=== PATIENT | female | born 1940 | race Hispanic/Latino ===

== ENCOUNTER 2017-04-17 03:01 | Inpatient (IN) | payer OTHER ==
[~2017-04-17 03:01] MED LIST: AMIO200T2 PO; AMOX1TAB16 PO; APIX5TAB PO; CARV6.25 PO; DIGO125T87 PO; FURO20TA6 PO; LEVO50TA11 PO; TYL3 PO; VALS320T15 PO
[2017-04-17] MEDS ORDERED: SODIUM CHLORIDE 0.9% 1000ML 1,000 ML IV ONE (03:23)
[2017-04-17] MEDS ORDERED: ONDANSETRON HCL 4 MG/2 ML VIAL ONE (03:23)
[2017-04-17] MEDS ORDERED: ACETAMINOPHEN EXTRA STRENGTH 500 MG TABLET ONE (03:23)
[2017-04-17 03:42] LABS: BASOPHILS % (AUTO) 0.4 % (0.0-5.0); HEMATOCRIT 43.9 % (36-48); LYMPHOCYTES % (AUTO) 14.6 % (21.0-51.0); MEAN CORPUSCULAR HEMOGLOBIN 32.2 pg (27.0-33.0); MEAN CORPUSCULAR HGB CONC 33.6 g/dL (32.0-36.0); MEAN CORPUSCULAR VOLUME 95.7 fL (79-99); MONOCYTES % (AUTO) 3.8 % (3.0-13.0); NEUTROPHILS % (AUTO) 81.2 % (40.0-77.0); NUCLEATED RED BLOOD CELLS 0.7 % (0.0-0.19); PLATELET COUNT (AUTO) 220 K/uL (130-400); RED BLOOD CELL COUNT(AUTO) 4.59 MIL/uL (4.00-5.50); RED CELL DISTRIBUTION WIDTH 13.9 % (11.0-15.5); WHITE BLOOD COUNT (AUTO) 6.6 K/uL (4.8-10.8)
[2017-04-17 03:43] LABS: CREATININE 2.5 mg/dL (0.5-1.5); POTASSIUM 3.6 mmol/L (3.5-5.1)
[2017-04-17 03:46] LABS: INR 1.15 (0.85-1.15); PARTIAL THROMBOPLASTIN TIME 29.8 SEC (26.3-35.5)
[2017-04-17 03:48] LABS: ABG BASE EXCESS -6.9 mmol/L (-2.0-3.0); ABG HCO3 15.3 mmol/L (21.0-28.0); ABG OXYGEN SATURATION 90.9 % (95.0-99.0); ABG PCO2 24 mmHg (32-45)
[2017-04-17] MEDS ORDERED: ZOSYN 3.375GM+NS 50ML 50 ML IV ONE (04:12)
[2017-04-17] MEDS ORDERED: VANCOMYCIN 1GM+NS 250ML 250 ML IV ONE (04:23)
[2017-04-17] MEDS ORDERED: DILTIAZEM HCL 5 MG/ML 10 ML VIAL IV ONE (04:24)
[2017-04-17] MEDS ORDERED: LEVOFLOXACIN 500 MG/D5W 100 ML 100 ML ONE (04:24)
[2017-04-17 04:26] LABS: APPEARANCE,URINE CLEAR (CLEAR); BILIRUBIN,URINE SMALL (NEGATIVE); COLOR,URINE YELLOW (YELLOW); GLUCOSE, URINE (UA) NEGATIVE (NEGATIVE); KETONES,URINE 15 mg/dL (NEGATIVE); LEUKOCYTE ESTERASE ,URINE LARGE (NEGATIVE); NITRATE,URINE NEGATIVE (NEGATIVE); OCCULT BLOOD,URINE LARGE (NEGATIVE); PROTEIN,URINE 100 (NEGATIVE); UROBILINOGEN,URINE 0.2 mg/dL (0.2-1.0)
[2017-04-17 04:27] LABS: ALBUMIN 3.4 g/dL (3.5-5.0); BILIRUBIN,TOTAL 1.2 mg/dL (0.2-1.0); TOTAL PROTEIN, SERUM 7.2 g/dL (6.0-8.3)
[2017-04-17 04:31] LABS: TROPONIN I 3.58 ng/mL (0.00-0.06)
[2017-04-17] MEDS ORDERED: ASPIRIN 325 MG TABLET ONE (04:34)
[2017-04-17 04:42] LABS: AMORPHOUS SEDIMENT,UR Many /LPF (None Seen); BACTERIA,URINE Moderate /HPF (None Seen); MUCUS,URINE Moderate LPF (None Seen); SQUAMOUS EPITHELIAL CELL,UR Moderate /LPF (0-2)
[2017-04-17] MEDS ORDERED: DILTIAZEM HCL 125 MG/25 ML VIAL IV ONE (04:46)
[2017-04-17 07:03] LABS: ABG BASE EXCESS -12.7 mmol/L (-2.0-3.0); ABG OXYGEN SATURATION 99.8 % (95.0-99.0); ABG PCO2 22 mmHg (32-45)
[2017-04-17] MEDS ORDERED: LORAZEPAM 2 MG/ML 1 ML VIAL ONE (07:18)
[2017-04-17] MEDS ORDERED: DEXTROSE 50%-WATER 50 ML DISP.SYRIN IV ONE ×2 (08:50→09:14)
[2017-04-17] MEDS ORDERED: DEXTROSE 10%-WATER 1,000 ML IV ONE (08:51)
[2017-04-17] MEDS ORDERED: SODIUM BICARB 8.4% 50ML SYRINGE IVP ONE ×2 (12:00)
[2017-04-17] MEDS ORDERED: EPINEPHRINE 0.1 MG/ML 10 ML SYG IVP ONE ×2 (12:00)
[2017-04-17] MEDS ORDERED: ETOMIDATE 2 MG/ML 10 ML VIAL IVP ONE (12:00)
[2017-04-17] MEDS ORDERED: ROCURONIUM BROMIDE 10MG/1ML 5ML VL IV ONE (12:00)
== END 2017-04-17 11:55 | disposition expired | DRG 872 ==
LOC: EDH 03:01 → EDHIP 07:18
PROVIDERS: ADMIT Family Medicine; ATTEND Family Medicine
PROC: 5A09357 Assistance with Respiratory Ventilation, Less than 24 Consecutive Hours, Continuous Positive Airway Pressure (ICD-10-PCS; principal; 2017-04-17)
PROC: 5A1935Z Respiratory Ventilation, Less than 24 Consecutive Hours (ICD-10-PCS; 2017-04-17)
PROC: 0BH17EZ Insertion of Endotracheal Airway into Trachea, Via Natural or Artificial Opening (ICD-10-PCS; 2017-04-17)
PROC: 5A12012 Performance of Cardiac Output, Single, Manual (ICD-10-PCS; 2017-04-17)
DX: A41.9 Sepsis, unspecified organism (principal); I46.9 Cardiac arrest, cause unspecified; E16.2 Hypoglycemia, unspecified; I10 Essential (primary) hypertension; I25.10 Atherosclerotic heart disease of native coronary artery without angina pectoris
CPT/HCPCS: 31500; 36415; 36600; 71045; 80053; 81001; 82550; 82553; 82803; 82948; 83605; 83874; 83880; 84484; 85025; 85610; 85730; 87040; 87088; 87186; 87804; 92950; 93005; 94002; 94660; J0171; J1956; J2060; J2405; J2543; J3370; J3490; J7030; J7070